=== PATIENT | male | born 1980 | race Caucasian/White ===

== ENCOUNTER 2018-09-20 18:00 | Emergency (ER) | payer OTHER ==
[~2018-09-20] VITALS: Ht 188 cm; Wt 87.5 kg
[2018-09-20 18:54] VITALS: Ht 188 cm; Wt 87.5 kg
[2018-09-20 22:35] VITALS: BP 125/67
== END 2018-09-20 22:35 | disposition home or self-care (01) ==
LOC: ED 18:00
DX: J20.9 Acute bronchitis, unspecified (principal); I10 Essential (primary) hypertension; F17.210 Nicotine dependence, cigarettes, uncomplicated; Z86.19 Personal history of other infectious and parasitic diseases; Z98.890 Other specified postprocedural states
CPT/HCPCS: 87804; J1885; Q0092